=== PATIENT | female | born 1970 | race Caucasian/White ===

== ENCOUNTER 2025-07-27 10:59 | Emergency (ER) | payer OTHER ==
[~2025-07-27] VITALS: Ht 154.9 cm; Wt 70.5 kg
[2025-07-27] MEDS ORDERED: FLUO-418 PO (11:09)
[2025-07-27 12:08] LABS: PLATELET COUNT (AUTO) 239 K/uL (150-450); RED BLOOD CELL COUNT(AUTO) 4.64 MIL/uL (4.00-5.20); RED CELL DISTRIBUTION WIDTH 13.3 % (11.5-14.5); WHITE BLOOD COUNT (AUTO) 6.6 K/uL (4.5-11.0)
[2025-07-27 12:13] LABS: CALCIUM, TOTAL 9.2 mg/dL (8.8-10.5); CREATININE 0.82 mg/dL (0.60-1.30); GLOMERULAR FILTR. RATE CALC > 60 mL/min (>60); GLUCOSE,RANDOM 102 mg/dL (70-110); SODIUM SERUM 135 mmol/L (136-145); UREA NITROGEN, BLOOD 11 mg/dL (7-18)
[2025-07-27 12:23] LABS: TROPONIN I-HIGH SENSITIVITY 5 ng/L (<51)
[2025-07-27 13:06] LABS: APPEARANCE,URINE CLEAR (CLEAR); GLUCOSE, URINE (UA) NEGATIVE (NEGATIVE); LEUKOCYTE ESTERASE ,URINE MODERATE (NEGATIVE); NITRATE,URINE NEGATIVE (NEGATIVE); OCCULT BLOOD,URINE TRACE (NEGATIVE); SPECIFIC GRAVITIY, URINE 1.028 (1.003-1.030)
[2025-07-27 13:14] LABS: ALCOHOL, URINE DRUG SCREEN NEGATIVE (NEGATIVE); AMPHET/METH SCREEN,URINE NEGATIVE (NEGATIVE); BARBITURATE SCREEN, URINE NEGATIVE (NEGATIVE); CANNABINOID SCREEN,URINE NEGATIVE (NEGATIVE); COCAINE SCREEN,URINE NEGATIVE (NEGATIVE); METHADONE SCREEN, URINE NEGATIVE (NEGATIVE)
[2025-07-27 13:19] LABS: PH,URINE DRUG SCREEN 7.0 (5.0-8.0)
[2025-07-27] MEDS: ASPIRIN 81 MG CHEWABLE TABLET PO ONE (13:31)
[2025-07-27 13:40] LABS: SQUAMOUS EPITHELIAL CELL,UR Many /LPF (None Seen)
[2025-07-27 14:52] LABS: COVID AG,FIA SOURCE NASAL SWAB
[2025-07-27 15:23] VITALS: TEMP 98.1; O2SAT 96
[2025-07-27] MEDS ORDERED: AMOX500C2 PO (15:24)
[2025-07-27 15:28] VITALS: BP 160/99; PULSE 76; RESP 16
[2025-07-27 15:54] LABS: SARS-COV2 (COVID) ANTIGEN,FIA Negative (Negative)
== END 2025-07-27 15:29 | disposition home or self-care (01) ==
LOC: EMS 11:08
DX: F41.9 Anxiety disorder, unspecified (principal); R07.89 Other chest pain; R00.2 Palpitations; F32.A Depression, unspecified; F43.0 Acute stress reaction; H66.92 Otitis media, unspecified, left ear; Z79.899 Other long term (current) drug therapy; Z20.822 Contact with and (suspected) exposure to COVID-19
CPT/HCPCS: 71045; 80048; 80307; 81001; 83880; 84484; 85025; 87086; 93005; 99285; 36415-L1; 36415-TC

== ENCOUNTER 2025-09-27 15:33 | Emergency (ER) | payer OTHER ==
[~2025-09-27] VITALS: Ht 154.9 cm; Wt 70.0 kg
[~2025-09-27 15:33] MED LIST: AMOX500C2 PO; FLUO-418 PO
[2025-09-27 15:51] VITALS: TEMP 97.9
[2025-09-27 16:09] LABS: PLATELET COUNT (AUTO) 226 K/uL (150-450); RED BLOOD CELL COUNT(AUTO) 4.56 MIL/uL (4.00-5.20); RED CELL DISTRIBUTION WIDTH 14.1 % (11.5-14.5); WHITE BLOOD COUNT (AUTO) 4.8 K/uL (4.5-11.0)
[2025-09-27 16:13] LABS: APPEARANCE,URINE CLEAR (CLEAR); GLUCOSE, URINE (UA) NEGATIVE (NEGATIVE); LEUKOCYTE ESTERASE ,URINE NEGATIVE (NEGATIVE); NITRATE,URINE NEGATIVE (NEGATIVE); OCCULT BLOOD,URINE TRACE (NEGATIVE); SPECIFIC GRAVITIY, URINE 1.024 (1.003-1.030)
[2025-09-27 16:16] LABS: CALCIUM, TOTAL 9.4 mg/dL (8.8-10.5); CREATININE 0.78 mg/dL (0.60-1.30); GLOMERULAR FILTR. RATE CALC > 60 mL/min (>60); GLUCOSE,RANDOM 125 mg/dL (70-110); UREA NITROGEN, BLOOD 14 mg/dL (7-18)
[2025-09-27 16:26] LABS: SQUAMOUS EPITHELIAL CELL,UR Few /LPF (None Seen)
[2025-09-27 16:26] LABS: TROPONIN I-HIGH SENSITIVITY 6 ng/L (<51)
[2025-09-27 16:30] LABS: SODIUM SERUM 137 mmol/L (136-145)
[2025-09-27 18:36] VITALS: BP 131/85; PULSE 68; RESP 17; O2SAT 95
[2025-09-27] MEDS: KETOROLAC TROMETHAMINE 30 MG/ML VIAL IM ONE (18:54)
[2025-09-27] MEDS ORDERED: AZITHROMYCIN 500 MG TABLET PO ONE (19:45)
[2025-09-27] MEDS ORDERED: AZIT250T9 PO (19:48)
[2025-09-27] MEDS ORDERED: LIDO-57 TP (19:50)
[2025-09-28] MEDS ORDERED: LIDO-57 TP (13:03)
[2025-09-28] MEDS ORDERED: AZIT250T9 PO (13:03)
== END 2025-09-27 20:03 | disposition home or self-care (01) ==
LOC: EMS 15:33
DX: J40 Bronchitis, not specified as acute or chronic (principal); R07.89 Other chest pain; F32.A Depression, unspecified; Z79.899 Other long term (current) drug therapy
CPT/HCPCS: 99285; 71045; 80048; 81001; 83880; 84484; 85025; 85610; 85730; 36415; 93005; 96372; J1885